=== PATIENT | male | born 1945 | race Caucasian/White ===

== ENCOUNTER 2016-09-07 06:40 | Day surgery (SDC) | payer OTHER ==
[2016-09-05 16:28] LABS: ASCORBIC ACID (UR NOT ORDER) NEG (NEG); BILIRUBIN, URINE NEGATIVE (NEG); KETONE, URINE NEGATIVE (NEG); LEUKOCYTE ESTERASE(NOT OR NEG (NEG); WBC (NOT ORDERED) (RFLEX) < 1 (0-5)
[2016-09-05 16:37] LABS: HEMATOCRIT 47.5 % (40.0-51.0); HEMOGLOBIN 16.1 g/dL (13.6-17.8)
[2016-09-05 16:56] LABS: BUN (BLOOD UREA NITROGEN) 28 MG/DL (6-23); CALCIUM, SERUM 8.8 MG/DL (8.5-10.4); CHLORIDE, SERUM 108 MMOL/L (96-112); CO2 (CARBON DIOXIDE) 22 MMOL/L (24-34); CREATININE 2.14 MG/DL (0.70-1.30); GFR AFRICAN AMERICAN 35 ML/MIN (>=60); GFR NON AFRICAN AMERICAN 30 ML/MIN (>=60); POTASSIUM, SERUM 4.2 MMOL/L (3.5-5.3); SODIUM, SERUM 140 MMOL/L (135-148)
[2016-09-05 16:57] LABS: GLUCOSE, SERUM 69 MG/DL (60-99)
--- NOTE | ~2016-09-07 | OP ---
Record Of Operation [facility] [address] [place]. [address] NAME: LINSEY ZAFAR III : 43 STATUS : [facility]#: [id number] AGE: 71 ADM/REG DATE : 09/07/16 MR#: [id number] REPORT SERV DATE: 09/07/16 DICTATED BY: HAROON HERNANDEZ JR. DATE: 09/07/16 REPORT STATUS : Draft TRANSCRIBED BY: FOSTER DATE: 09/07/16 DATE OF PROCEDURE: 09/07/2016 PREOPERATIVE DIAGNOSIS: Elevated PSA. POSTOPERATIVE DIAGNOSIS: Elevated PSA. PROCEDURE PERFORMED: Transrectal ultrasound and transrectal ultrasound-guided prostate biopsy. COMPLICATIONS: None. CONSULTATIONS: None. ANESTHESIA: IV conscious sedation. SPECIMENS: Prostate biopsies on the right base x5, right mid x4, right apex x4, left base x4, left mid x4, left apex x4. COMPLICATIONS: None. ESTIMATED BLOOD LOSS: None. INDICATION: Mr. Zafar is a 71-year-old gentleman, who has had a negative biopsy many years ago that showed MILEY. He has also had two MRIs which were negative for any lesions; however, his PSA density remains elevated at 0.20. He comes in today for a saturation biopsy. We discussed the risks and possible complications of that procedure. His questions were answered to his satisfaction. He expressed understanding of these risks and possible complications. PROCEDURE IN DETAIL: After the patient was identified and proper informed consent was obtained, he was taken to the operating room. General monitored anesthesia care was performed without complication. He was then placed in the right side up lateral position with the hips and knees flexed. Prostate ultrasound was performed which revealed a 39 mL prostate gland. I did not note any abnormal areas on the ultrasound. He had good homogeneous appearance to the entire gland itself. There were no hypoechoic areas or calcified areas. I then performed saturation needle-guided biopsies to every 5 mm based on prostate size. The above-mentioned biopsies were performed including biopsies of the anterior zone of the gland. The ultrasound probe was then removed. The patient was awakened in the operating room and transferred to the postanesthesia care unit in stable condition. I will see him back in the office in one week for biopsy results. [facility] [address] [place], [place]. [address] NAME: LINSEY ZAFAR III : 43 STATUS : [facility]#: [id number] AGE: 71 ADM/REG DATE : 09/07/16 MR#: [id number] REPORT SERV DATE: 09/07/16 DICTATED BY: HAROON HERNANDEZ JR. DATE: 09/07/16 REPORT STATUS : Draft TRANSCRIBED BY: FOSTER DATE: 09/07/16 Haroon Hernandez Jr., M.D. / [id number] CC: Soila Manzanares Jr., M.D.
[~2016-09-07 06:40] MED LIST: ABILIFY10 PO; ADVAIR115P INH; AMB10 PO; AMB5 PO; ASTEPRO0.15 % NAS; ATV.5 PO; B121000P IM; BEN25 PO; BUSPAR15 M1 PO; CELEXA20 PO; CELEXA40 MG PO; CITRUCELSF PO; CLARIT10 PO; CYMBALTA60 PO; DEXILANT PO; DSS PO; DYMISTA; ELIQUIS 2.5 MG2.5 MG PO; FISH-EPA1000 MG PO; FLONASE NAS; KAPIDEX60 MG PO; KLONO5 PO; KONSYL100 % PO; LUTEIN1 CAP OR; LUTEIN20 MG OR; METAMUCIL CAN7 OZ PO; MICARDIS HCT PO; MICARDIS80 PO; MIRALAXPKT PO; MOBIC15 MG PO; NEXIUM20 M1 PO; NEXIUM40 PO; OMNARIS; PATANASE0.6 % NAS; PREV30 PO; PRILO PO; PRILOSEC40 MG PO; PRISTIQ50 MG PO; PROAIR HFA INH; PROSCAR5 PO; PROTONIX PO; PULRESP.5 INH; Q NASAL; RANITIDINE300 MG PO; REM15 PO; REMERON30 MG PO; SINGULAIR1 PO; SYMBICORT 160/41 INH INH; TESTOST CYP100 MG/ML IM; TRAZ50 PO; ULTRAM50 PO; VITAMIN B-121000 MC1 SL; VITAMIN B-122500 MCG SL; VITAMIN D1000 UNI1 PO; VITAMIN D31000 UNIT PO; X5 PO; Z300 PO; ZANTAC 150 PO; ZANTAC 75 PO
== END 2016-09-07 16:19 | disposition home or self-care (01) ==
LOC: SDC 06:40
PROVIDERS: Urology
PROC: 0VB07ZX Excision of Prostate, Via Natural or Artificial Opening, Diagnostic (ICD-10-PCS; 2016-09-07)
PROC: BV49ZZZ Ultrasonography of Prostate and Seminal Vesicles (ICD-10-PCS; principal; 2016-09-07 07:45)
DX: R97.20 Elevated prostate specific antigen [PSA] (principal); K21.9 Gastro-esophageal reflux disease without esophagitis; I12.0 Hypertensive chronic kidney disease with stage 5 chronic kidney disease or end stage renal disease; N52.9 Male erectile dysfunction, unspecified; N18.9 Chronic kidney disease, unspecified; N40.0 Benign prostatic hyperplasia without lower urinary tract symptoms; R35.0 Frequency of micturition; J45.909 Unspecified asthma, uncomplicated; G47.33 Obstructive sleep apnea (adult) (pediatric); R39.15 Urgency of urination; Z90.5 Acquired absence of kidney; Z88.5 Allergy status to narcotic agent; Z90.49 Acquired absence of other specified parts of digestive tract
CPT/HCPCS: 76872; 76942; 80048; 81001; 85014; 85018; 88305; 93005; A9270-GY; J1580; J3010